=== PATIENT | female | born 1995 | race African-American/Black ===

== ENCOUNTER 2021-05-01 20:31 | Emergency (ER) | payer OTHER, SELFPAY ==
[2021-05-01] MEDS ORDERED: Ibuprofen 800 MG TAB ONE (22:00)
== END 2021-05-01 22:20 | disposition home or self-care (01) ==
LOC: ERS 20:31
DX: S00.03XA Contusion of scalp, initial encounter (principal); W01.198A Fall on same level from slipping, tripping and stumbling with subsequent striking against other object, initial encounter
CPT/HCPCS: 70450; 72125

== ENCOUNTER 2022-01-05 11:05 | Emergency (ER) | payer OTHER, SELFPAY ==
[~2022-01-05 11:05] MED LIST: Iopamidol-370 76% 500 ML 1 ML ONE
[2022-01-05] MEDS ORDERED: Boostrix 0.5 ML (Tdap) VIAL ONE (11:44)
[2022-01-05] MEDS ORDERED: Acetaminophen 500 MG TAB ONE (11:44)
[2022-01-05 12:26] LABS: BHCG - Serum Negative (NEGATIVE); Pregs Control Background? CLEAR/WHITE (CLR/WHITE); Pregs Control Bar Appear? YES (CONTROL BAR)
== END 2022-01-05 14:15 | disposition home or self-care (01) ==
LOC: ERS 11:05
DX: S09.90XA Unspecified injury of head, initial encounter (principal); S00.81XA Abrasion of other part of head, initial encounter; S00.12XA Contusion of left eyelid and periocular area, initial encounter; S10.93XA Contusion of unspecified part of neck, initial encounter; S70.311A Abrasion, right thigh, initial encounter; S30.811A Abrasion of abdominal wall, initial encounter; M25.519 Pain in unspecified shoulder; W10.8XXA Fall (on) (from) other stairs and steps, initial encounter; F17.290 Nicotine dependence, other tobacco product, uncomplicated
CPT/HCPCS: 70450; 70486; 70498; 84703; 90471; 90715; Q9967

== ENCOUNTER 2022-01-18 15:56 | Emergency (ER) | payer OTHER ==
[2022-01-18 16:45] LABS: #Basophils 0.1 thou/uL (0.0-0.2); #Eosinphils 0.1 thou/uL (0.0-0.7); #Lymphocytes 3.5 thou/uL (1.20-3.40); #Monocytes 0.6 thou/uL (0.11-0.59); #Neutrophils 2.7 thou/uL (1.40-6.50); %Basophils 1.2 % (0.0-1.0); %Eosinophils 1.3 % (0.0-10.0); %Lymphocytes 49.7 % (21.0-51.0); %Monocytes 8.5 % (0.0-10.0); %Neutrophils 39.4 % (42.0-75.0); Hemoglobin 13.2 g/dL (12.0-16.0); Mean Corpuscular HGB CONC 32.5 g/dL (32.0-36.0); Mean Corpuscular Hemoglobin 28.9 pg (27.0-31.0); Mean Corpuscular Volume 88.9 fL (78.0-98.0); Mean Platelet Volume 8.6 fL (7.4-10.4); Platelet Count 191 thou/uL (130-400); Red Blood Cell (RBC) Count 4.56 mill/uL (4.20-5.40)
[2022-01-18 16:59] LABS: BHCG - Serum Negative (NEGATIVE); Pregs Control Background? CLEAR/WHITE (CLR/WHITE); Pregs Control Bar Appear? YES (CONTROL BAR)
[2022-01-18 17:40] LABS: ALT (SGPT) 10 U/L (8-55); AST (SGOT) 14 U/L (5-34); Albumin 4.2 g/dL (3.5-5.0); Alkaline Phosphatase 47 U/L (40-110); Anion Gap 10 mmol/L (10-20); BUN (Urea Nitrogen) 10 mg/dL (7.0-18.7); Bilirubin, Total 0.3 mg/dL (0.2-1.2); Calc. Creatinine Clearance 0 mL/min (70-130); Carbon Dioxide 26 mmol/L (22-29); Chloride 107 mmol/L (98-107); Estimated GFR 103; Globulin 3.5 g/dL (2.4-3.5); Glucose 88 mg/dL (70-105); Lipase 20 U/L (8-78); Potassium 3.8 mmol/L (3.5-5.1); Protein, Total 7.7 g/dL (6.0-8.3); Sodium 139 mmol/L (136-145)
[2022-01-18] MEDS ORDERED: Ondansetron ODT 4 MG TAB ONE (18:56)
[2022-01-18] MEDS ORDERED: Dicyclomine 20 MG TAB ONE (19:07)
[2022-01-18 20:09] LABS: Bilirubin Negative (Negative); Blood, Urine Negative (Negative); Clarity Clear (Clear); Glucose, Urine (Dipstick) Normal (Negative); Ketone, Urine Negative (Negative); Leukocyte Negative Leu/uL (Negative); Nitrite Negative (Negative); Protein, Urine (Dipstick) Negative (Neg-Trace); Specific Gravity, Urine 1.024 (1.002-1.036); Urobilinogen Normal mg/dL (Less than 2)
== END 2022-01-18 21:07 | disposition home or self-care (01) ==
LOC: ERS 15:56
DX: R11.2 Nausea with vomiting, unspecified (principal); R10.84 Generalized abdominal pain; F17.290 Nicotine dependence, other tobacco product, uncomplicated
CPT/HCPCS: 36415; 80053; 81003; 83690; 84703; 85025; 99284; Q0162

== ENCOUNTER 2022-05-19 17:57 | Emergency (ER) | payer OTHER ==
[2022-05-19 18:23] LABS: #Basophils 0.1 thou/uL (0.0-0.2); #Eosinphils 0.1 thou/uL (0.0-0.7); #Lymphocytes 2.9 thou/uL (1.20-3.40); #Monocytes 0.8 thou/uL (0.11-0.59); #Neutrophils 2.5 thou/uL (1.40-6.50); %Basophils 0.8 % (0.0-1.0); %Eosinophils 1.3 % (0.0-10.0); %Lymphocytes 45.7 % (21.0-51.0); %Monocytes 12.3 % (0.0-10.0); %Neutrophils 39.8 % (42.0-75.0); Hemoglobin 12.5 g/dL (12.0-16.0); Mean Corpuscular HGB CONC 32.5 g/dL (32.0-36.0); Mean Corpuscular Hemoglobin 29.4 pg (27.0-31.0); Mean Corpuscular Volume 90.2 fl (78.0-98.0); Mean Platelet Volume 8.2 fL (7.4-10.4); Platelet Count 155 10x3/uL (130-400); RBC Distribution Width 11.8 % (11.5-14.5); Red Blood Cell (RBC) Count 4.25 mill/uL (4.20-5.40); White Blood Cell (WBC) Count 6.3 10x3/uL (4.8-10.8)
[2022-05-19 18:43] LABS: ALT (SGPT) 7 U/L (8-55); AST (SGOT) 17 U/L (5-34); Albumin 4.4 g/dL (3.5-5.0); Alkaline Phosphatase 55 U/L (40-110); Anion Gap 13 mmol/L (10-20); BHCG - Serum Negative (NEGATIVE); BUN (Urea Nitrogen) 12 mg/dL (7.0-18.7); Bilirubin, Total 0.4 mg/dL (0.2-1.2); Calc. Creatinine Clearance 0 mL/min (70-130); Calcium 9.2 mg/dL (7.8-10.44); Carbon Dioxide 25 mmol/L (22-29); Chloride 107 mmol/L (98-107); Estimated GFR 98; Globulin 2.8 g/dL (2.4-3.5); Glucose 90 mg/dL (70-105); Potassium 3.9 mmol/L (3.5-5.1); Pregs Control Background? CLEAR/WHITE (CLR/WHITE); Pregs Control Bar Appear? YES (CONTROL BAR); Protein, Total 7.2 g/dL (6.0-8.3); Sodium 141 mmol/L (136-145)
[2022-05-19] MEDS ORDERED: Ketorolac Tromethamine 30 MG/ML VIAL ONE (18:57)
[2022-05-19] MEDS ORDERED: Ondansetron ODT 4 MG TAB ONE (18:57)
== END 2022-05-19 19:39 | disposition home or self-care (01) ==
LOC: ERS 17:57
DX: R11.10 Vomiting, unspecified (principal); R07.89 Other chest pain; R51.9 Headache, unspecified; Z20.822 Contact with and (suspected) exposure to COVID-19; F17.290 Nicotine dependence, other tobacco product, uncomplicated
CPT/HCPCS: 36415; 71045; 80053; 83690; 84484; 84703; 85025; 85379; 93005; 96372; J1885; Q0162; U0003; U0005

== ENCOUNTER 2022-06-05 18:18 | Emergency (ER) | payer OTHER ==
[2022-06-05] MEDS ORDERED: Ketorolac Tromethamine 30 MG/ML VIAL ONE (21:50)
== END 2022-06-05 22:01 | disposition home or self-care (01) ==
LOC: ERS 18:18
DX: S70.01XA Contusion of right hip, initial encounter (principal); F17.290 Nicotine dependence, other tobacco product, uncomplicated; Y04.8XXA Assault by other bodily force, initial encounter; Y92.89 Other specified places as the place of occurrence of the external cause
CPT/HCPCS: 96372; J1885

== ENCOUNTER 2023-07-29 14:17 | Emergency (ER) | payer BC, SELFPAY ==
[2023-07-29] MEDS ORDERED: traMADol HCl 50 MG TAB ONE (14:36)
== END 2023-07-29 15:00 | disposition home or self-care (01) ==
LOC: ERS 14:17
DX: S93.431A Sprain of tibiofibular ligament of right ankle, initial encounter (principal); F17.290 Nicotine dependence, other tobacco product, uncomplicated; W10.8XXA Fall (on) (from) other stairs and steps, initial encounter

== ENCOUNTER 2023-08-01 10:19 | Emergency (ER) | payer BC | END 2023-08-01 11:03 | disposition home or self-care (01) | LOC: ERS 10:19 | DX: S93.491A Sprain of other ligament of right ankle, initial encounter (principal); F17.290 Nicotine dependence, other tobacco product, uncomplicated; W01.0XXA Fall on same level from slipping, tripping and stumbling without subsequent striking against object, initial encounter | CPT/HCPCS: 99283 ==